=== PATIENT | male | born 1940 | race Hispanic/Latino ===

== ENCOUNTER → 2018-09-26 | Outpatient (CLI) | payer OTHER, MEDICARE ==
[~2018-09-26] MED LIST: REGADENOSON 0.4 MG/5 ML PF SYG IVP SCH
== END | disposition home or self-care (01) ==
LOC: SHCH 09:47
PROVIDERS: ATTEND Internal Medicine Cardiovascular Disease
DX: I25.709 Atherosclerosis of coronary artery bypass graft(s), unspecified, with unspecified angina pectoris (principal)
CPT/HCPCS: 78452; A9500 ×2; J2785

== ENCOUNTER → 2020-02-14 | Outpatient (CLI) | payer OTHER, MEDICARE | END | disposition home or self-care (01) | LOC: SHCH 10:45 | PROVIDERS: ATTEND Internal Medicine Cardiovascular Disease | DX: M79.604 Pain in right leg (principal); M79.605 Pain in left leg | CPT/HCPCS: 93922; 93925 ==

== ENCOUNTER 2020-03-31 19:42 | Inpatient (IN) | payer OTHER, MEDICARE ==
[~2020-03-31] VITALS: Ht 165.1 cm; Wt 99.8 kg
[2020-03-31] MEDS ORDERED: ONDANSETRON HCL 4 MG/2 ML VIAL ONE (20:32)
[2020-03-31] MEDS ORDERED: MORPHINE SULFATE 2 MG/ML 1ML SYG ONE (20:33)
[2020-04-01] VITALS (9 sets, daily range): BP systolic 120–171; BP diastolic 51–75; PULSE 61–69; RESP 18–22; TEMP 97.5–98.7
[2020-04-01] MEDS ORDERED: TRAMADOL HCL 50 MG TABLET PO PRN (01:30)
[2020-04-01] MEDS: FAMOTIDINE 20MG TAB 20 MG TAB PO SCH ×2 (08:14→20:56)
--- NOTE | 2020-04-01 15:38 | NUR ---
ATIYA NOTE/IA MEET WITH PATIENT IN ROOM. PER PATIENT, LIVES ALONE, INDEPENDENT WITH ADLS, HAS WHEELCHAIR, PROVIDER DAILY FOR 3//2 HRS AND FEELS SAFE TO RETURN HOME ONCE DISCHARGED FROM HOSPITAL. Addendum: 04/03/20 at 1540 by KAROLINA MCKENZIE RN CM Amended: Links added.
[2020-04-01] MEDS: INSULIN HUMULIN R 100 UNIT/ML 3ML SQ SCH ×2 (17:59→20:57)
[2020-04-01] MEDS: ALBUTEROL SULFATE 0.083% 2.5 MG/3 ML INH IH SCH ×2 (18:58→23:32)
[2020-04-01] MEDS: ATORVASTATIN CALCIUM 40 MG TABLET PO SCH (20:56)
[2020-04-02] VITALS (11 sets, daily range): BP systolic 135–188; BP diastolic 48–81; PULSE 64–90; RESP 18–22; TEMP 97.9–98.9
[2020-04-02] MEDS: INSULIN HUMULIN R 100 UNIT/ML 3ML SQ SCH ×4 (06:32→20:37)
[2020-04-02] MEDS: ALBUTEROL SULFATE 0.083% 2.5 MG/3 ML INH IH SCH ×3 (07:22→17:27)
[2020-04-02] MEDS: METFORMIN HCL 500 MG TABLET PO SCH ×2 (09:11→17:27)
[2020-04-02] MEDS: LOSARTAN 50 MG TABLET PO SCH (09:11)
[2020-04-02] MEDS: FAMOTIDINE 20MG TAB 20 MG TAB PO SCH ×2 (09:11→20:32)
[2020-04-02] MEDS: GLIPIZIDE 5 MG TABLET PO SCH ×2 (09:11→17:27)
[2020-04-02] MEDS ORDERED: CLONIDINE HCL 0.1 MG TABLET PO PRN (13:30)
[2020-04-02] MEDS ORDERED: ACETAMINOPHEN 325 MG TAB PO PRN (16:15)
--- NOTE | 2020-04-02 18:50 | NUR ---
DC PLAN PATIENT LIVES ALONE. SEMI INDEPENDENT PROVIDER 3 HOURS A DAY. WHEEL CHAIR AVAILABLE. HOME. Addendum: 04/02/20 at 1851 by PAT TAN RN CM Amended: Links added.
--- NOTE | 2020-04-02 20:07 | NUR ---
DC PLAN VISITED WITH PATIENT. REQUESTING O2 AND ROLLATOR WALKER. GAVE VERBAL RELEASE TO FIND DME AND 02 IN NETWORK WITH INSURANCE. SPOKE TO DR. MANZO GAVE ORDERS SIGNED FORMS. FAXED PACKET TO [facility] PATIENT AND [facility]. CM WILL CONTINUE TO FOLLOW. Addendum: 04/02/20 at 2012 by PAT TAN RN CM Amended: Links added.
[2020-04-02] MEDS: HYDRALAZINE HCL 25 MG TABLET PO SCH (20:32)
[2020-04-02] MEDS: ATORVASTATIN CALCIUM 40 MG TABLET PO SCH (20:32)
[2020-04-02] MEDS ORDERED: NON-FORMULARY MEDICATION 1 EACH (Hydralazine HCl 50 MG) PO SCH (21:00)
[2020-04-03] VITALS (9 sets, daily range): BP systolic 130–169; BP diastolic 53–78; PULSE 69–102; RESP 18–20; TEMP 97.5–98.5
[2020-04-03] MEDS: ALBUTEROL SULFATE 0.083% 2.5 MG/3 ML INH IH SCH ×3 (00:16→11:40)
[2020-04-03] MEDS: INSULIN HUMULIN R 100 UNIT/ML 3ML SQ SCH ×3 (05:45→16:30)
[2020-04-03] MEDS ORDERED: LISINOPRIL 10 MG TABLET PO SCH (09:00)
[2020-04-03] MEDS ORDERED: HYDROCHLOROTHIAZIDE 25 MG TABLET PO SCH (09:00)
[2020-04-03] MEDS: HYDRALAZINE HCL 25 MG TABLET PO SCH (09:07)
[2020-04-03] MEDS: METFORMIN HCL 500 MG TABLET PO SCH ×2 (09:08→17:55)
[2020-04-03] MEDS: FAMOTIDINE 20MG TAB 20 MG TAB PO SCH (09:08)
[2020-04-03] MEDS: GLIPIZIDE 5 MG TABLET PO SCH ×2 (09:08→17:55)
[2020-04-03] MEDS: LOSARTAN 50 MG TABLET PO SCH (09:08)
--- NOTE | 2020-04-03 10:24 | NUR ---
ABGs spoke to Dr Orellana regarding [address] Orellana stated that he will review the ABGs when he rounds today.
--- NOTE | 2020-04-03 14:25 | NUR ---
1120 PATIENT SIGNED IM LETTER, I FAXED IM LETTER TO [id number] AND PLACED IN CHART UNDER CONSENT TAB.
== END 2020-04-03 19:00 | disposition home or self-care (01) | DRG 190 ==
LOC: EDH 19:42 → EDHIP 23:54 → OBSVTOIN 23:54 → 3DH 04-01 01:14
PROVIDERS: ADMIT Internal Medicine; ATTEND Internal Medicine
DX: J44.1 Chronic obstructive pulmonary disease with (acute) exacerbation (principal); I50.33 Acute on chronic diastolic (congestive) heart failure; E66.2 Morbid (severe) obesity with alveolar hypoventilation; G93.40 Encephalopathy, unspecified; J96.11 Chronic respiratory failure with hypoxia; I11.0 Hypertensive heart disease with heart failure; I25.10 Atherosclerotic heart disease of native coronary artery without angina pectoris; D75.1 Secondary polycythemia; E11.51 Type 2 diabetes mellitus with diabetic peripheral angiopathy without gangrene; I27.20 Pulmonary hypertension, unspecified; J45.40 Moderate persistent asthma, uncomplicated; M19.90 Unspecified osteoarthritis, unspecified site; M48.061 Spinal stenosis, lumbar region without neurogenic claudication; S51.011A Laceration without foreign body of right elbow, initial encounter; W18.30XA Fall on same level, unspecified, initial encounter; Y93.89 Activity, other specified; Y92.89 Other specified places as the place of occurrence of the external cause; Y99.8 Other external cause status; Z68.36 Body mass index [BMI] 36.0-36.9, adult; Z87.891 Personal history of nicotine dependence